=== PATIENT | female | born 1990 | race Two or more races ===

== ENCOUNTER 2024-08-31 10:09 | Outpatient (AMB) | payer BC, SELFPAY ==
[2024-08-31 10:15] VITALS: BP 120/86; PULSE 89; RESP 18; TEMP 36.6; O2SAT 98; BMI 31.4
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
== END 2024-08-31 10:28 | disposition home or self-care (01) ==
LOC: HODAHC 10:09
PROVIDERS: PCP Student in an Organized Health Care Education/Training Program; Referring Provider Student in an Organized Health Care Education/Training Program; Supervising Provider Internal Medicine; Visit Provider Student in an Organized Health Care Education/Training Program
DX: R73.03 Prediabetes (principal); R53.83 Other fatigue; Z71.2 Person consulting for explanation of examination or test findings
CPT/HCPCS: 99213; G0463

== ENCOUNTER 2024-09-10 22:55 | Emergency (ER) | payer BC, SELFPAY ==
[2024-09-10 22:55] VITALS: BMI 30.1
[2024-09-10 23:22] VITALS: BP 134/89; PULSE 85; RESP 18; TEMP 36.9; O2SAT 98
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
[2024-09-10] MEDS: HYDROcodone/APAP 5/325 TABLET 1 TAB PO (23:58)
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
[2024-09-11 01:54] VITALS: RESP 18
== END 2024-09-11 01:55 | disposition home or self-care (01) ==
PROVIDERS: Emergency Provider Emergency Medicine; PCP Family Medicine
DX: S09.90XA Unspecified injury of head, initial encounter (principal); S19.9XXA Unspecified injury of neck, initial encounter; V89.2XXA Person injured in unspecified motor-vehicle accident, traffic, initial encounter
CPT/HCPCS: 70450; 72125; 99284; A9270